=== PATIENT | male | born 2000 | race African-American/Black ===

== ENCOUNTER 2021-12-30 11:39 | Emergency (ER) | payer MEDICAID ==
[~2021-12-30] VITALS: Ht 190.5 cm; Wt 87.5 kg
[2021-12-30 11:45] VITALS: BP_SYST 107
--- NOTE | 2021-12-30 11:50 | NUR ---
PT TRIAGED AND ON GURNEY WITH EMT'S AWAITING AVAILABLE BED IN MAIN ED. MD MADE AWARE OF MSE
--- NOTE | 2021-12-30 11:59 | NUR ---
PT BIBA FROM HOME, STATES HE WAS [place]ST [place] AROUND 1900. PAIN TO RIGHT ANKLE, NO NOTED BRUISING. MILD SWELLING, SKIN WDI. PT IS AOX4, VSS
[2021-12-30] MEDS ORDERED: IBUP-1969 PO (12:40)
[2021-12-30] MEDS ORDERED: IBUPROFEN 600 MG TABLET PO ONE (12:45)
--- NOTE | 2021-12-30 13:18 | NUR ---
Splinting: AIR WALKER
--- NOTE | 2021-12-30 13:38 | NUR ---
Patient given written and verbal discharge instructions and verbalizes understanding. ER MD discussed with patient the results and treatment provided. Patient in stable condition. ID arm band removed. Rx of IBUPROFEN given. Patient educated on pain management and to follow up with PMD. Pain Scale 0/10. Opportunity for questions provided and answered. Medication side effect fact sheet provided.
[2021-12-30 13:45] VITALS: BP_SYST 107
== END 2021-12-30 13:38 | disposition home or self-care (01) ==
LOC: SED 11:39
DX: S93.491A Sprain of other ligament of right ankle, initial encounter (principal); S93.431A Sprain of tibiofibular ligament of right ankle, initial encounter; Y04.8XXA Assault by other bodily force, initial encounter; Y93.89 Activity, other specified; Y92.89 Other specified places as the place of occurrence of the external cause; Y99.8 Other external cause status
CPT/HCPCS: 99283